=== PATIENT | female | born 1955 | race Caucasian/White ===

== ENCOUNTER 2017-10-10 04:58 | Inpatient (IN) | payer MEDICARE ==
[~2017-10-10] VITALS: Ht 170.2 cm; Wt 61.2 kg
--- NOTE | ~2017-10-10 | OP ---
PATIENT NAME: ANGELICA NELSON MEDICAL RECORD: [id number] LOCATION:[id number] ADMISSION DATE:10/10/17 SURGEON: VAZQUEZ BLUM MD DATE OF OPERATION: 10/19/2017 PREOPERATIVE DIAGNOSES: 1. Osteomyelitis of the left foot. 2. Severe atherosclerotic peripheral vascular disease involving the arteries going to the left lower extremity. 3. 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 4. Occluded fem-fem bypass graft. POSTOPERATIVE DIAGNOSES: 1. Osteomyelitis of the left foot. 2. Severe atherosclerotic peripheral vascular disease involving the arteries going to the left lower extremity. 3. 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 4. Occluded fem-fem bypass graft. 5. Very small but patent left superficial femoral artery, left profunda femoris artery, and left popliteal artery as well as trifurcation and runoff vessels. PROCEDURES: 1. Open thrombectomy of fem-fem PTFE bypass graft. 2. Nonselective arteriogram of the left side of the fem-fem bypass graft. 3. Immediate surgeon interpretation of the fluoroscopic images. SURGEON: Vazquez Blum MD FINANCE INTERN: None. BLOOD LOSS: Less than 100 cc. ANESTHESIA: General. COMPLICATIONS: None. The risks, possible complications, and alternatives to the procedure were discussed with the patient. She elected to proceed. I specifically discussed with her the fact that she would be on anticoagulation for rest of her life. We discussed the possibility of further limb loss including but not limited to transmetatarsal amputation, vmgwc-qgn-[id number] amputation, or zdvwy-[id number]-phqe amputation. The patient continues to smoke and the nurses have taken packs of cigarettes away from her. I told her specifically that smoking would make her hypercoagulable and would potentially lead to arterial occlusion and limb loss. No radiologist was present for this procedure. Static and cine-fluoroscopic images were obtained and are kept in the PACS system. The surgeon interpretation of the radiographic images is dictated within the body of this operative note. OPERATIVE COURSE: The patient was conveyed to the operating room electively on 10/19/2017. General anesthesia was induced by the anesthesia staff. The lower abdomen and the lower extremities were sterilely prepped and draped. A transverse incision was accomplished in the suprapubic area overlying the fem-fem bypass graft. I dissected down to the bypass graft. It was encircled OPERATIVE REPORT [id number] ANGELICA NELSON with vessel loops. I first placed a vascular clamp on the left side of the graft. A graftotomy was accomplished. I advanced a 5-[place] He catheter. I performed a thorough thrombectomy of the right side of the graft. There was excellent inflow. I placed a clamp on the right side of the graft. On the left side, I performed a catheter thrombectomy here as well until I had some back bleeding, which was not brisk. I then closed the graftotomy with a running horizontal mattress 5-0 Prolene suture. I then released proximal and distal control on the graft. I could palpate a pulse within the graft. Additionally, Doppler signal with good diastolic flow could be heard within the graft. I then inserted a butterfly needle into the graft. Through the butterfly needle, I performed arteriograms. These were nonselective arteriograms. The first was on the left side of the graft as well as the common femoral artery, the profunda femoris artery, and the superficial femoral artery on the left. The next were sequential images down the lower extremity down to the level of the ankle. I noted no evidence of arterial occlusion in these areas. The butterfly needle was removed. Pressure was held at the graft puncture site until it was hemostatic. Evicel was applied to the graft at the graftotomy site. The subdermis was approximated with interrupted 3-0 Vicryls. The skin was approximated with a running intracuticular 4-0 Vicryl. A sterile dressing was then applied. The patient was then extubated and conveyed to postanesthesia care unit, where she was in stable condition. She had a left common femoral arterial pulse in the recovery room. The patient was then extubated and conveyed to the postanesthesia care unit, where she was in stable condition. She will be placed on anticoagulation. TRANSINT:[id number] Voice Confirmation ID: [id number] DOCUMENT ID: [id number] VAZQUEZ BLUM MD at 2126 CC: JAK TREVIZO MD [id number] DICTATION DATE: 10/20/171709 RADIOLOGY SUPERVISOR: 10/20/17 1742 DIS IN 10/21/17 [facility] [address] [place] [id number]
[2017-10-10] MEDS ORDERED: CIPRO500 MG PO (05:07)
[2017-10-10 06:22] LABS: BASOPHILS 0.2 % (0-2); EOSINOPHILS 0.7 % (0-7); HEMATOCRIT 33.1 % (36.0-48.0); HEMOGLOBIN 10.5 g/dL (12-16); IMMATURE GRANULOCYTES 0.2 % (0-5); LYMPHOCYTES 14.4 % (15-50); MCH 28.7 pg (26.0-34.0); MCHC 31.7 g/dL (31.0-37.0); MCV 90.4 fL (80.0-100.0); MEAN PLATELET VOLUME 10.3 fL (7.4-10.4); MONOCYTES 8.9 % (2-11); NEUTROPHILS 75.6 % (40-80); PLATELET COUNT 318 10x3/uL (130-400); RBC 3.66 10x6/uL (4.00-5.40); RDW 14.5 % (11.5-14.5); WBC 12.1 10x3/uL (4.8-10.8)
[2017-10-10 06:38] LABS: ALKALINE PHOSPHATASE 104 U/L (46-116); ALT (SGPT) 15 U/L (10-68); BILIRUBIN - TOTAL 0.42 mg/dL (0.2-1.3); CALC OSMOLALITY 275 mosm/kg (275-300); CALCIUM 8.6 mg/dL (8.5-10.1); CHLORIDE - SERUM 103 mmol/L (98-107); CREATININE - SERUM 0.7 mg/dL (0.6-1.3); GLUCOSE 107 mg/dL (74-106); PROTEIN - SERUM 7.4 g/dL (6.4-8.2); SODIUM 138 mmol/L (136-145); UREA NITROGEN 12 mg/dL (7-18); eGFR NON AFRICAN AMERICAN 90 mL/min (90-120)
[2017-10-10 09:32] VITALS: BP 130/88; BMI 21.2
[2017-10-10 12:59] LABS: UDS - AMPHET POSITIVE QUAL (NEGATIVE); UDS - BARB NEGATIVE QUAL (NEGATIVE); UDS - BENZO NEGATIVE QUAL (NEGATIVE); UDS - COCAINE NEGATIVE QUAL (NEGATIVE); UDS - OPIATE NEGATIVE QUAL (NEGATIVE); UDS - PCP NEGATIVE QUAL (NEGATIVE); UDS - THC NEGATIVE QUAL (NEGATIVE)
[2017-10-10 13:32] LABS: % SATURATION 5 % (15-55); IRON 17 ug/dl (35-150); TOTAL IRON BIND CAPACITY 299 ug/dl (260-445); UNSAT IRON BIND CAPACITY 282 ug/dl (150-375)
[2017-10-10 16:00] VITALS: BP 126/72
[2017-10-10 20:00] VITALS: BP 115/64
[2017-10-10] MEDS ORDERED: ULTRAM50 MG PO (22:57)
[2017-10-10] MEDS ORDERED: DESERYL100 MG PO (22:58)
[2017-10-10] MEDS ORDERED: PROZAC20 MG PO (23:01)
[2017-10-11 04:00] VITALS: BP 97/70
[2017-10-11 16:42] VITALS: BP 116/66
[2017-10-11 20:33] VITALS: BP 127/88
[2017-10-12 03:10] VITALS: BP 98/67
[2017-10-12 06:05] LABS: BASOPHILS 0.5 % (0-2); EOSINOPHILS 2.3 % (0-7); IMMATURE GRANULOCYTES 0.3 % (0-5); LYMPHOCYTES 25.5 % (15-50); MCH 28.7 pg (26.0-34.0); MCHC 31.3 g/dL (31.0-37.0); MCV 91.7 fL (80.0-100.0); MEAN PLATELET VOLUME 10.4 fL (7.4-10.4); MONOCYTES 9.9 % (2-11); NEUTROPHILS 61.5 % (40-80); PLATELET COUNT 318 10x3/uL (130-400); RBC 3.49 10x6/uL (4.00-5.40); RDW 14.6 % (11.5-14.5)
[2017-10-12 06:15] LABS: WBC 6.6 10x3/uL (4.8-10.8)
[2017-10-12 06:21] LABS: ALBUMIN 2.4 g/dL (3.4-5.0); ALKALINE PHOSPHATASE 97 U/L (46-116); ALT (SGPT) 20 U/L (10-68); BILIRUBIN - TOTAL 0.13 mg/dL (0.2-1.3); CALC OSMOLALITY 278 mosm/kg (275-300); CALCIUM 8.3 mg/dL (8.5-10.1); CARBON DIOXIDE 29.6 mmol/L (21.0-32.0); CHLORIDE - SERUM 107 mmol/L (98-107); CREATININE - SERUM 0.7 mg/dL (0.6-1.3); GLUCOSE 95 mg/dL (74-106); POTASSIUM - SERUM 3.8 mmol/L (3.5-5.1); PROTEIN - SERUM 6.5 g/dL (6.4-8.2); SODIUM 141 mmol/L (136-145); UREA NITROGEN 8 mg/dL (7-18); eGFR NON AFRICAN AMERICAN 90 mL/min (90-120)
[2017-10-12 09:04] VITALS: BP 130/91
[2017-10-12 18:34] VITALS: BP 131/54
[2017-10-12 20:00] VITALS: BP 114/65
[2017-10-13 03:38] VITALS: BP 122/72
[2017-10-13 05:09] LABS: BASOPHILS 0.4 % (0-2); EOSINOPHILS 1.8 % (0-7); HEMATOCRIT 31.2 % (36.0-48.0); HEMOGLOBIN 9.7 g/dL (12-16); IMMATURE GRANULOCYTES 0.1 % (0-5); LYMPHOCYTES 18.7 % (15-50); MCH 28.4 pg (26.0-34.0); MCHC 31.1 g/dL (31.0-37.0); MCV 91.5 fL (80.0-100.0); MEAN PLATELET VOLUME 10.5 fL (7.4-10.4); MONOCYTES 7.2 % (2-11); NEUTROPHILS 71.8 % (40-80); PLATELET COUNT 348 10x3/uL (130-400); RBC 3.41 10x6/uL (4.00-5.40); RDW 14.4 % (11.5-14.5); WBC 8.2 10x3/uL (4.8-10.8)
[2017-10-13 05:24] LABS: ALBUMIN 2.4 g/dL (3.4-5.0); ALKALINE PHOSPHATASE 93 U/L (46-116); ALT (SGPT) 16 U/L (10-68); BILIRUBIN - TOTAL 0.14 mg/dL (0.2-1.3); CALC OSMOLALITY 279 mosm/kg (275-300); CALCIUM 8.1 mg/dL (8.5-10.1); CARBON DIOXIDE 28.9 mmol/L (21.0-32.0); CHLORIDE - SERUM 105 mmol/L (98-107); CREATININE - SERUM 0.8 mg/dL (0.6-1.3); GLUCOSE 94 mg/dL (74-106); POTASSIUM - SERUM 3.5 mmol/L (3.5-5.1); PROTEIN - SERUM 6.2 g/dL (6.4-8.2); SODIUM 141 mmol/L (136-145); UREA NITROGEN 10 mg/dL (7-18); eGFR NON AFRICAN AMERICAN 77 mL/min (90-120)
[2017-10-13 09:49] VITALS: BP 124/76
[2017-10-13 12:45] VITALS: BP 139/87
[2017-10-13 16:40] VITALS: BP 128/77
[2017-10-13 20:35] VITALS: BP 141/80
[2017-10-14 04:36] VITALS: BP 101/70
[2017-10-14 08:18] LABS: FOLATE (FOLIC ACID) - SERUM 13.3 ng/mL (>3.0)
[2017-10-14 08:21] LABS: BASOPHILS 0.3 % (0-2); EOSINOPHILS 1.9 % (0-7); HEMATOCRIT 34.2 % (36.0-48.0); HEMOGLOBIN 10.7 g/dL (12-16); IMMATURE GRANULOCYTES 0.3 % (0-5); LYMPHOCYTES 24.6 % (15-50); MCH 28.4 pg (26.0-34.0); MCHC 31.3 g/dL (31.0-37.0); MCV 90.7 fL (80.0-100.0); MEAN PLATELET VOLUME 10.6 fL (7.4-10.4); MONOCYTES 6.6 % (2-11); NEUTROPHILS 66.3 % (40-80); PLATELET COUNT 392 10x3/uL (130-400); RBC 3.77 10x6/uL (4.00-5.40); RDW 14.2 % (11.5-14.5); WBC 6.9 10x3/uL (4.8-10.8)
[2017-10-14 08:48] LABS: ALBUMIN 2.7 g/dL (3.4-5.0); ALKALINE PHOSPHATASE 95 U/L (46-116); ALT (SGPT) 17 U/L (10-68); BILIRUBIN - TOTAL 0.18 mg/dL (0.2-1.3); CALC OSMOLALITY 277 mosm/kg (275-300); CALCIUM 8.5 mg/dL (8.5-10.1); CARBON DIOXIDE 30.9 mmol/L (21.0-32.0); CHLORIDE - SERUM 104 mmol/L (98-107); CREATININE - SERUM 0.7 mg/dL (0.6-1.3); GLUCOSE 92 mg/dL (74-106); POTASSIUM - SERUM 3.9 mmol/L (3.5-5.1); PROTEIN - SERUM 6.9 g/dL (6.4-8.2); SODIUM 140 mmol/L (136-145); UREA NITROGEN 9 mg/dL (7-18); eGFR NON AFRICAN AMERICAN 90 mL/min (90-120)
[2017-10-14 08:50] VITALS: BP 121/81
[2017-10-14 12:51] VITALS: BP 120/73
[2017-10-14 17:36] VITALS: BP 135/77
[2017-10-14 20:00] VITALS: BP 130/73
[2017-10-15 04:43] VITALS: BP 121/71
[2017-10-15 06:00] LABS: BASOPHILS 0.2 % (0-2); EOSINOPHILS 1.4 % (0-7); HEMATOCRIT 32.6 % (36.0-48.0); HEMOGLOBIN 10.2 g/dL (12-16); IMMATURE GRANULOCYTES 0.2 % (0-5); LYMPHOCYTES 26.7 % (15-50); MCH 28.3 pg (26.0-34.0); MCHC 31.3 g/dL (31.0-37.0); MCV 90.6 fL (80.0-100.0); MEAN PLATELET VOLUME 10.6 fL (7.4-10.4); MONOCYTES 5.8 % (2-11); NEUTROPHILS 65.7 % (40-80); PLATELET COUNT 409 10x3/uL (130-400); RDW 14.2 % (11.5-14.5); WBC 8.6 10x3/uL (4.8-10.8)
[2017-10-15 06:25] LABS: ALBUMIN 2.6 g/dL (3.4-5.0); ALKALINE PHOSPHATASE 89 U/L (46-116); ALT (SGPT) 19 U/L (10-68); BILIRUBIN - TOTAL 0.16 mg/dL (0.2-1.3); CALC OSMOLALITY 279 mosm/kg (275-300); CALCIUM 8.6 mg/dL (8.5-10.1); CARBON DIOXIDE 28.3 mmol/L (21.0-32.0); CHLORIDE - SERUM 103 mmol/L (98-107); CREATININE - SERUM 0.7 mg/dL (0.6-1.3); GLUCOSE 90 mg/dL (74-106); POTASSIUM - SERUM 3.8 mmol/L (3.5-5.1); PROTEIN - SERUM 6.9 g/dL (6.4-8.2); SODIUM 141 mmol/L (136-145); UREA NITROGEN 11 mg/dL (7-18); eGFR NON AFRICAN AMERICAN 90 mL/min (90-120)
[2017-10-15 09:03] VITALS: BP 121/62
[2017-10-15 12:06] VITALS: Ht 170.2 cm; Wt 61.2 kg
[2017-10-15 13:42] VITALS: BP 135/87
[2017-10-15 16:42] VITALS: BP 151/78
[2017-10-15 19:59] VITALS: BP 126/72
[2017-10-15 23:55] VITALS: BP 121/75
[2017-10-16 04:00] VITALS: BP 130/77
[2017-10-16 06:11] LABS: HEMATOCRIT 32.4 % (36.0-48.0); HEMOGLOBIN 10.6 g/dL (12-16); LYMPHOCYTES 16.1 % (15-50); MCHC 32.7 g/dL (31.0-37.0); MCV 88.8 fL (80.0-100.0); MEAN PLATELET VOLUME 9.9 fL (7.4-10.4); NEUTROPHILS 77.2 % (40-80); PLATELET COUNT 367 10x3/uL (130-400); RBC 3.65 10x6/uL (4.00-5.40); RDW 13.5 % (11.5-14.5)
[2017-10-16 06:14] LABS: WBC 10.9 10x3/uL (4.8-10.8)
[2017-10-16 06:24] LABS: ALBUMIN 2.8 g/dL (3.4-5.0); ALKALINE PHOSPHATASE 92 U/L (46-116); ALT (SGPT) 17 U/L (10-68); BILIRUBIN - TOTAL 0.17 mg/dL (0.2-1.3); CALC OSMOLALITY 279 mosm/kg (275-300); CALCIUM 8.8 mg/dL (8.5-10.1); CARBON DIOXIDE 26.5 mmol/L (21.0-32.0); CHLORIDE - SERUM 104 mmol/L (98-107); CREATININE - SERUM 0.8 mg/dL (0.6-1.3); GLUCOSE 96 mg/dL (74-106); PROTEIN - SERUM 6.5 g/dL (6.4-8.2); SODIUM 141 mmol/L (136-145); UREA NITROGEN 9 mg/dL (7-18); eGFR NON AFRICAN AMERICAN 77 mL/min (90-120)
[2017-10-16 08:34] VITALS: BP 128/75
[2017-10-16 13:01] VITALS: BP 137/80
[2017-10-16 16:40] VITALS: BP 140/79
[2017-10-16 20:00] VITALS: BP 146/83
[2017-10-17] VITALS (7 sets, daily range): BP systolic 115–144; BP diastolic 66–80
[2017-10-17 05:30] LABS: BASOPHILS 0.3 % (0-2); HEMATOCRIT 32.4 % (36.0-48.0); HEMOGLOBIN 10.2 g/dL (12-16); IMMATURE GRANULOCYTES 0.3 % (0-5); LYMPHOCYTES 30.3 % (15-50); MCH 28.1 pg (26.0-34.0); MCHC 31.5 g/dL (31.0-37.0); MCV 89.3 fL (80.0-100.0); MEAN PLATELET VOLUME 10.2 fL (7.4-10.4); MONOCYTES 8.7 % (2-11); NEUTROPHILS 59.4 % (40-80); PLATELET COUNT 380 10x3/uL (130-400); RBC 3.63 10x6/uL (4.00-5.40); RDW 14.2 % (11.5-14.5); WBC 8.7 10x3/uL (4.8-10.8)
[2017-10-17 05:49] LABS: ALBUMIN 2.6 g/dL (3.4-5.0); ALKALINE PHOSPHATASE 93 U/L (46-116); ALT (SGPT) 18 U/L (10-68); BILIRUBIN - TOTAL 0.15 mg/dL (0.2-1.3); CALC OSMOLALITY 274 mosm/kg (275-300); CALCIUM 8.5 mg/dL (8.5-10.1); CARBON DIOXIDE 28.4 mmol/L (21.0-32.0); CHLORIDE - SERUM 104 mmol/L (98-107); CREATININE - SERUM 0.7 mg/dL (0.6-1.3); GLUCOSE 99 mg/dL (74-106); POTASSIUM - SERUM 3.7 mmol/L (3.5-5.1); PROTEIN - SERUM 6.8 g/dL (6.4-8.2); SODIUM 138 mmol/L (136-145); UREA NITROGEN 11 mg/dL (7-18); eGFR NON AFRICAN AMERICAN 90 mL/min (90-120)
[2017-10-18 04:00] VITALS: BP 158/80
[2017-10-18 06:23] LABS: BASOPHILS 0.3 % (0-2); EOSINOPHILS 1.3 % (0-7); HEMATOCRIT 34.3 % (36.0-48.0); HEMOGLOBIN 10.9 g/dL (12-16); IMMATURE GRANULOCYTES 0.5 % (0-5); LYMPHOCYTES 31.5 % (15-50); MCH 28.3 pg (26.0-34.0); MCHC 31.8 g/dL (31.0-37.0); MCV 89.1 fL (80.0-100.0); MEAN PLATELET VOLUME 10.6 fL (7.4-10.4); MONOCYTES 7.3 % (2-11); NEUTROPHILS 59.1 % (40-80); PLATELET COUNT 388 10x3/uL (130-400); RBC 3.85 10x6/uL (4.00-5.40); RDW 14.3 % (11.5-14.5); WBC 8.7 10x3/uL (4.8-10.8)
[2017-10-18 06:51] LABS: ALKALINE PHOSPHATASE 101 U/L (46-116); ALT (SGPT) 18 U/L (10-68); BILIRUBIN - TOTAL 0.23 mg/dL (0.2-1.3); CALC OSMOLALITY 277 mosm/kg (275-300); CALCIUM 8.7 mg/dL (8.5-10.1); CARBON DIOXIDE 30.2 mmol/L (21.0-32.0); CHLORIDE - SERUM 103 mmol/L (98-107); CREATININE - SERUM 0.7 mg/dL (0.6-1.3); GLUCOSE 89 mg/dL (74-106); POTASSIUM - SERUM 3.7 mmol/L (3.5-5.1); PROTEIN - SERUM 6.8 g/dL (6.4-8.2); SODIUM 141 mmol/L (136-145); eGFR NON AFRICAN AMERICAN 90 mL/min (90-120)
[2017-10-18 06:52] LABS: UREA NITROGEN 8 mg/dL (7-18)
[2017-10-18 10:10] VITALS: BP 131/79
[2017-10-18 20:23] VITALS: BP 130/70
[2017-10-19 03:55] VITALS: BP 163/90
[2017-10-19 05:19] LABS: BASOPHILS 0.5 % (0-2); EOSINOPHILS 1.8 % (0-7); HEMATOCRIT 33.8 % (36.0-48.0); HEMOGLOBIN 10.7 g/dL (12-16); IMMATURE GRANULOCYTES 0.5 % (0-5); LYMPHOCYTES 32.6 % (15-50); MCH 28.3 pg (26.0-34.0); MCHC 31.7 g/dL (31.0-37.0); MCV 89.4 fL (80.0-100.0); MEAN PLATELET VOLUME 10.5 fL (7.4-10.4); NEUTROPHILS 56.6 % (40-80); PLATELET COUNT 386 10x3/uL (130-400); RBC 3.78 10x6/uL (4.00-5.40); RDW 14.3 % (11.5-14.5); WBC 7.8 10x3/uL (4.8-10.8)
[2017-10-19 05:32] LABS: ALKALINE PHOSPHATASE 99 U/L (46-116); ALT (SGPT) 19 U/L (10-68); BILIRUBIN - TOTAL 0.15 mg/dL (0.2-1.3); CALC OSMOLALITY 276 mosm/kg (275-300); CALCIUM 8.8 mg/dL (8.5-10.1); CARBON DIOXIDE 27.7 mmol/L (21.0-32.0); CHLORIDE - SERUM 102 mmol/L (98-107); CREATININE - SERUM 0.7 mg/dL (0.6-1.3); GLUCOSE 96 mg/dL (74-106); POTASSIUM - SERUM 3.7 mmol/L (3.5-5.1); PROTEIN - SERUM 7.3 g/dL (6.4-8.2); SODIUM 139 mmol/L (136-145); UREA NITROGEN 9 mg/dL (7-18); eGFR NON AFRICAN AMERICAN 90 mL/min (90-120)
[2017-10-19 08:20] VITALS: BP 138/86
[2017-10-19 11:53] VITALS: BP 126/78
[2017-10-19 14:18] VITALS: BP 136/75
[2017-10-20 04:10] VITALS: BP 127/82
[2017-10-20 04:48] LABS: BASOPHILS 0.2 % (0-2); EOSINOPHILS 0 % (0-7); HEMATOCRIT 34.6 % (36.0-48.0); HEMOGLOBIN 11.2 g/dL (12-16); IMMATURE GRANULOCYTES 0.2 % (0-5); LYMPHOCYTES 14.2 % (15-50); MCH 28.7 pg (26.0-34.0); MCHC 32.4 g/dL (31.0-37.0); MCV 88.7 fL (80.0-100.0); MEAN PLATELET VOLUME 10.1 fL (7.4-10.4); MONOCYTES 5.1 % (2-11); NEUTROPHILS 80.3 % (40-80); PLATELET COUNT 388 10x3/uL (130-400); RDW 14.3 % (11.5-14.5)
[2017-10-20 05:04] LABS: ALBUMIN 3.2 g/dL (3.4-5.0); ALKALINE PHOSPHATASE 102 U/L (46-116); ALT (SGPT) 17 U/L (10-68); BILIRUBIN - TOTAL 0.19 mg/dL (0.2-1.3); CALC OSMOLALITY 277 mosm/kg (275-300); CARBON DIOXIDE 27.3 mmol/L (21.0-32.0); CHLORIDE - SERUM 99 mmol/L (98-107); CREATININE - SERUM 0.8 mg/dL (0.6-1.3); GLUCOSE 124 mg/dL (74-106); POTASSIUM - SERUM 3.6 mmol/L (3.5-5.1); PROTEIN - SERUM 7.8 g/dL (6.4-8.2); SODIUM 139 mmol/L (136-145); UREA NITROGEN 11 mg/dL (7-18); eGFR NON AFRICAN AMERICAN 77 mL/min (90-120)
[2017-10-20 05:14] LABS: WBC 13.1 10x3/uL (4.8-10.8)
[2017-10-20 08:03] VITALS: BP 133/88
[2017-10-20 11:59] VITALS: BP 146/78
[2017-10-20 21:31] VITALS: BP 142/73
[2017-10-21 05:13] VITALS: BP 164/74
[2017-10-21 05:42] LABS: BASOPHILS 0.4 % (0-2); EOSINOPHILS 0.7 % (0-7); HEMATOCRIT 31.6 % (36.0-48.0); HEMOGLOBIN 10.1 g/dL (12-16); IMMATURE GRANULOCYTES 0.9 % (0-5); LYMPHOCYTES 38.9 % (15-50); MCH 28.5 pg (26.0-34.0); MONOCYTES 8.4 % (2-11); NEUTROPHILS 50.7 % (40-80); PLATELET COUNT 356 10x3/uL (130-400); RBC 3.55 10x6/uL (4.00-5.40); RDW 14.5 % (11.5-14.5)
[2017-10-21 05:54] LABS: WBC 9.4 10x3/uL (4.8-10.8)
[2017-10-21 06:09] LABS: ALBUMIN 2.9 g/dL (3.4-5.0); ALKALINE PHOSPHATASE 89 U/L (46-116); ALT (SGPT) 19 U/L (10-68); BILIRUBIN - TOTAL 0.17 mg/dL (0.2-1.3); CALC OSMOLALITY 282 mosm/kg (275-300); CALCIUM 8.6 mg/dL (8.5-10.1); CARBON DIOXIDE 27.5 mmol/L (21.0-32.0); CHLORIDE - SERUM 104 mmol/L (98-107); CREATININE - SERUM 0.7 mg/dL (0.6-1.3); GLUCOSE 95 mg/dL (74-106); POTASSIUM - SERUM 3.6 mmol/L (3.5-5.1); SODIUM 142 mmol/L (136-145); UREA NITROGEN 12 mg/dL (7-18); eGFR NON AFRICAN AMERICAN 90 mL/min (90-120)
[2017-10-21 08:20] VITALS: BP 146/83
[2017-10-21] MEDS ORDERED: VIBRAMYCIN 100100 MG PO (10:50)
[2017-10-21] MEDS ORDERED: Nicoderm [PBKC] TRANSDERM (10:50)
[2017-10-21] MEDS ORDERED: PLAVIX75 MG PO (10:51)
== END 2017-10-21 11:55 | disposition home health service (06) | DRG 253 ==
LOC: D.ER 04:58 → D.MS 07:29
PROVIDERS: Family Medicine; Internal Medicine Nephrology; Orthopaedic Surgery; Surgery
PROC: B42G1ZZ Computerized Tomography (CT Scan) of Left Lower Extremity Arteries using Low Osmolar Contrast (ICD-10-PCS; 2017-10-13)
PROC: B41D1ZZ Fluoroscopy of Aorta and Bilateral Lower Extremity Arteries using Low Osmolar Contrast (ICD-10-PCS; 2017-10-13)
PROC: 0Y6Q0Z1 Detachment at Left 1st Toe, High, Open Approach (ICD-10-PCS; principal; 2017-10-15 12:00)
PROC: 04CL0ZZ Extirpation of Matter from Left Femoral Artery, Open Approach (ICD-10-PCS; 2017-10-19 10:25)
DX: I70.202 Unspecified atherosclerosis of native arteries of extremities, left leg (principal); M86.9 Osteomyelitis, unspecified; M84.475A Pathological fracture, left foot, initial encounter for fracture; F17.213 Nicotine dependence, cigarettes, with withdrawal; T82.868A Thrombosis due to vascular prosthetic devices, implants and grafts, initial encounter; G40.909 Epilepsy, unspecified, not intractable, without status epilepticus; J44.9 Chronic obstructive pulmonary disease, unspecified; E87.6 Hypokalemia; I10 Essential (primary) hypertension; D50.9 Iron deficiency anemia, unspecified

== ENCOUNTER 2018-05-10 14:24 | Emergency (ER) | payer OTHER ==
[~2018-05-10] VITALS: Ht 170.2 cm; Wt 61.4 kg
[~2018-05-10 14:24] MED LIST: CIPRO500 MG PO; DESERYL100 MG PO; Nicoderm [PBKC] TRANSDERM; PLAVIX75 MG PO; PROZAC20 MG PO; ULTRAM50 MG PO; VIBRAMYCIN 100100 MG PO
[2018-05-10 14:26] VITALS: Ht 170.2 cm; Wt 61.4 kg
[2018-05-10 15:22] LABS: BASOPHILS 0.4 % (0-2); EOSINOPHILS 0.3 % (0-7); HEMATOCRIT 43.3 % (36.0-48.0); IMMATURE GRANULOCYTES 0.3 % (0-5); LYMPHOCYTES 21.7 % (15-50); MCH 31.8 pg (26.0-34.0); MCHC 32.3 g/dL (31.0-37.0); MCV 98.4 fL (80.0-100.0); MEAN PLATELET VOLUME 10.6 fL (7.4-10.4); MONOCYTES 5.2 % (2-11); NEUTROPHILS 72.1 % (40-80); PLATELET COUNT 331 10x3/uL (130-400); RDW 13.4 % (11.5-14.5); WBC 11.3 10x3/uL (4.8-10.8)
[2018-05-10 15:51] LABS: ALBUMIN 3.6 g/dL (3.4-5.0); ALKALINE PHOSPHATASE 117 U/L (46-116); ALT (SGPT) 19 U/L (10-68); CALC OSMOLALITY 281 mosm/kg (275-300); CALCIUM 9.1 mg/dL (8.5-10.1); CARBON DIOXIDE 28.1 mmol/L (21.0-32.0); CHLORIDE - SERUM 100 mmol/L (98-107); CREATININE - SERUM 0.7 mg/dL (0.6-1.3); GLUCOSE 118 mg/dL (74-106); POTASSIUM - SERUM 3.7 mmol/L (3.5-5.1); PROTEIN - SERUM 7.9 g/dL (6.4-8.2); SODIUM 140 mmol/L (136-145); UREA NITROGEN 18 mg/dL (7-18); eGFR NON AFRICAN AMERICAN 90 mL/min (90-120)
[2018-05-10 16:00] VITALS: BP 151/82
== END 2018-05-10 17:40 | disposition home or self-care (01) ==
LOC: D.ER 14:24
PROVIDERS: Family Medicine
DX: I73.9 Peripheral vascular disease, unspecified (principal); M79.605 Pain in left leg; M79.604 Pain in right leg

== ENCOUNTER 2018-05-13 11:49 | Emergency (ER) | payer OTHER ==
[~2018-05-13] VITALS: Ht 170.2 cm; Wt 61.4 kg
[2018-05-13 11:50] VITALS: Ht 170.2 cm; Wt 61.4 kg
[2018-05-13 12:32] LABS: APPEARANCE HAZY (CLEAR); BILIRUBIN NEGATIVE (NEGATIVE); COLOR YELLOW (YELLOW); GLUCOSE NEGATIVE (NEGATIVE); KETONE NEGATIVE (NEGATIVE); NITRITE NEGATIVE (NEGATIVE); PROTEIN TRACE mg/dL (NEGATIVE); UDS - AMPHET POSITIVE QUAL (NEGATIVE); UDS - BARB NEGATIVE QUAL (NEGATIVE); UDS - BENZO POSITIVE QUAL (NEGATIVE); UDS - COCAINE NEGATIVE QUAL (NEGATIVE); UDS - OPIATE NEGATIVE QUAL (NEGATIVE); UDS - PCP NEGATIVE QUAL (NEGATIVE); UDS - THC NEGATIVE QUAL (NEGATIVE); UROBILINOGEN NORMAL (NORMAL)
[2018-05-13 12:34] LABS: BACTERIA MODERATE /hpf (NONE SEEN); MUCUS >1+ /lpf (NONE SEEN); WHITE CELLS - URINE 0-5 /hpf (0-5)
[2018-05-13 12:35] LABS: RED CELLS - URINE OCC /hpf (0-5)
[2018-05-13 13:41] LABS: BASOPHILS 0.2 % (0-2); EOSINOPHILS 0.1 % (0-7); HEMATOCRIT 34.2 % (36.0-48.0); HEMOGLOBIN 11.4 g/dL (12-16); IMMATURE GRANULOCYTES 0.4 % (0-5); LYMPHOCYTES 13.2 % (15-50); MCH 31.6 pg (26.0-34.0); MCHC 33.3 g/dL (31.0-37.0); MCV 94.7 fL (80.0-100.0); MEAN PLATELET VOLUME 10.7 fL (7.4-10.4); MONOCYTES 6.3 % (2-11); NEUTROPHILS 79.8 % (40-80); RBC 3.61 10x6/uL (4.00-5.40); RDW 13.3 % (11.5-14.5); WBC 9.4 10x3/uL (4.8-10.8)
[2018-05-13 13:43] LABS: PLATELET COUNT 249 10x3/uL (130-400)
[2018-05-13 14:04] LABS: ALBUMIN 3.4 g/dL (3.4-5.0); ALKALINE PHOSPHATASE 105 U/L (46-116); ALT (SGPT) 16 U/L (10-68); BILIRUBIN - TOTAL 0.62 mg/dL (0.2-1.3); CALC OSMOLALITY 283 mosm/kg (275-300); CALCIUM 8.6 mg/dL (8.5-10.1); CARBON DIOXIDE 26.4 mmol/L (21.0-32.0); CHLORIDE - SERUM 105 mmol/L (98-107); CREATININE - SERUM 0.6 mg/dL (0.6-1.3); GLUCOSE 110 mg/dL (74-106); POTASSIUM - SERUM 3.6 mmol/L (3.5-5.1); PROTEIN - SERUM 6.6 g/dL (6.4-8.2); SODIUM 142 mmol/L (136-145); UREA NITROGEN 13 mg/dL (7-18); eGFR NON AFRICAN AMERICAN > 90 mL/min (90-120)
[2018-05-13 19:32] VITALS: BP 137/86
== END 2018-05-13 19:33 | disposition home or self-care (01) ==
LOC: D.ER 11:49
PROVIDERS: Emergency Medicine
DX: F19.129 Other psychoactive substance abuse with intoxication, unspecified (principal)

== ENCOUNTER → 2018-07-29 13:18 | Outpatient (CLI) | payer OTHER ==
[2018-05-13 11:50] VITALS: BMI 21.2
[~2018-07-29 13:18] MED LIST changes: +IBUPROFEN800 MG PO
== END | disposition home or self-care (01) ==
LOC: D.CT 07-20 09:00 → D.US 07-23 09:00
PROVIDERS: ATTEND Surgery
DX: I73.9 Peripheral vascular disease, unspecified (principal)

== ENCOUNTER 2018-07-31 13:14 | Emergency (ER) | payer OTHER ==
[~2018-07-31] VITALS: Ht 170.2 cm; Wt 61.4 kg
[~2018-07-31 13:14] MED LIST changes: -IBUPROFEN800 MG PO
[2018-07-31 13:16] VITALS: Ht 170.2 cm; Wt 61.4 kg
--- NOTE | 2018-07-31 14:51 | NUR ---
DR. HENRY NOTIFIED AND REVIEWED PATIENT'S BEHAVIOR AND ASSESSMENT RESULTS. PT IS A LOW RISK PER DR. HENRY. DR HENRY STATED TO GIVE RESOURCES TO PATIENT AT TIME OF DISCHARGE. NO FURTHER ORDERS AT THIS TIME. RESOURCES REVIEWED WITH PATIENT AND SHE VERBALIZED UNDERSTANDING.
[2018-07-31] MEDS ORDERED: IBUPROFEN800 MG PO (15:09)
[2018-07-31 15:36] VITALS: BP 108/60
== END 2018-07-31 15:38 | disposition home or self-care (01) ==
LOC: D.ER 13:14
DX: M54.5 Low back pain (principal); F32.9 Major depressive disorder, single episode, unspecified